=== PATIENT | female | born 1945 | race Caucasian/White ===

== ENCOUNTER 2018-10-24 10:02 | Inpatient (IN) | payer OTHER, MEDICAID ==
[~2018-10-24] VITALS: Ht 157.5 cm; Wt 94.8 kg
[~2018-10-24 10:02] MED LIST: AMBIEN5 MG PO; AMLODIPINE BESY10 M1 PO; APR25 PO; ASPIR-LOW81 M1 PO; CLOPIDOGREL75 M1 PO; COLACE100 MG PO; COR200 PO; CORE25 PO; DIPHENHYDRAMINE50 M2 PO; LIPI20 PO; LORAZEPAM0.5 MG PO; MIRUD PO; NEP PO; NEURONTIN100 MG PO; NIT0.4 SL; NOR10 PO; NOR5 PO; PRO40 PO; REN800 PO; REQUIP0.5 MG PO; TRAMADOL HCL50 MG PO; ZES20 PO; ZESTRIL40 MG PO
[2018-10-24 11:02] LABS: BASOPHIL % 0.2 % (0-2)
[2018-10-24 11:03] LABS: PLATELET COUNT 112 x10^3mcL (130-400); RED CELL DISTRIBUTION WIDTH 15.7 % (11.5-14.5)
[2018-10-24 11:19] LABS: ALBUMIN 3.4 g/dL (3.4-5.0); BILIRUBIN TOTAL 0.6 mg/dL (0.20-1.00); CALCIUM 8.6 mg/dL (8.5-10.1); CARBON DIOXIDE 27.4 mmol/L (21-32); POTASSIUM SERUM 4.4 mmol/L (3.5-5.1)
[2018-10-24 11:29] LABS: TOTAL PROTEIN, SERUM 8.4 g/dL (6.4-8.2)
[2018-10-24 11:30] LABS: CREATININE SERUM 8.9 mg/dL (0.6-1.0)
[2018-10-24 12:43] LABS: T3 TOTAL 0.6 ng/mL
[2018-10-24 12:46] LABS: CHOLESTEROL/HDL RATIO 3.8; MAGNESIUM 2.1 mg/dL (1.8-2.4); PHOSPHOROUS 1.9 mg/dL (2.5-4.9)
[2018-10-24 12:58] LABS: FREE T4 1.31 ng/dL (0.76-1.46); FREE THYROXINE INDEX 3.4 ug/dL (1.4-4.5); T4(THYROXINE) 9.8 ug/dL (4.7-13.3)
[2018-10-24] MEDS ORDERED: PLA75 (13:10)
[2018-10-24] MEDS ORDERED: AMLODIPINE-OLM1 EAC1 (13:10)
[2018-10-24] MEDS ORDERED: AMIODARONE HCL200 MG (13:10)
[2018-10-24] MEDS ORDERED: ZESTRIL5 MG (13:11)
[2018-10-24] MEDS ORDERED: CARVEDILOL3.125 M1 (13:11)
[2018-10-24] MEDS ORDERED: COLACE100 MG (13:11)
[2018-10-24] MEDS ORDERED: ELA25 (13:12)
[2018-10-24] MEDS ORDERED: ROPINIROLE2 M1 (13:12)
[2018-10-24] MEDS ORDERED: LORAZEPAM0.5 MG (13:12)
[2018-10-24] MEDS ORDERED: RENVELA800 M1 (13:13)
[2018-10-24 14:25] VITALS: BP 143/70
[2018-10-24 14:43] VITALS: BP 146/72
[2018-10-24 21:35] VITALS: BP 154/83
[2018-10-25] VITALS (7 sets, daily range): BP systolic 99–156; BP diastolic 23–76
[2018-10-25 06:51] LABS: BASOPHIL % 0.4 % (0-2)
[2018-10-25 06:52] LABS: PLATELET COUNT 85 x10^3mcL (130-400); RED CELL DISTRIBUTION WIDTH 15.9 % (11.5-14.5)
[2018-10-25 07:17] LABS: CALCIUM 8.1 mg/dL (8.5-10.1); CARBON DIOXIDE 26.7 mmol/L (21-32); MAGNESIUM 1.9 mg/dL (1.8-2.4); PHOSPHOROUS 3.3 mg/dL (2.5-4.9); POTASSIUM SERUM 4.3 mmol/L (3.5-5.1)
[2018-10-25 07:25] LABS: CREATININE SERUM 6.4 mg/dL (0.6-1.0)
[2018-10-26 05:21] VITALS: BP 132/54
[2018-10-26 07:14] LABS: CALCIUM 7.6 mg/dL (8.5-10.1); CARBON DIOXIDE 26.5 mmol/L (21-32); PHOSPHOROUS 4.4 mg/dL (2.5-4.9); POTASSIUM SERUM 4.5 mmol/L (3.5-5.1)
[2018-10-26 07:32] LABS: CREATININE SERUM 8.9 mg/dL (0.6-1.0)
[2018-10-26 07:38] LABS: BASOPHIL % 0.3 % (0-2)
[2018-10-26 07:40] LABS: PLATELET COUNT 92 x10^3mcL (130-400); RED CELL DISTRIBUTION WIDTH 15.4 % (11.5-14.5)
[2018-10-26 08:41] VITALS: BP 141/67
[2018-10-26 11:18] VITALS: BP 141/67
[2018-10-26] MEDS ORDERED: TAMIFLU6 MG/ML PO (14:07)
[2018-10-26 15:44] VITALS: BP 151/72
[2018-10-26 16:26] VITALS: BP 106/59
== END 2018-10-26 16:40 | disposition home or self-care (01) | DRG 682 ==
LOC: ED 10:02 → DU 11:45
PROVIDERS: Emergency Medicine; General Practice
DX: I12.0 Hypertensive chronic kidney disease with stage 5 chronic kidney disease or end stage renal disease (principal); J96.01 Acute respiratory failure with hypoxia; N18.6 End stage renal disease; N17.0 Acute kidney failure with tubular necrosis; J44.1 Chronic obstructive pulmonary disease with (acute) exacerbation; R65.10 Systemic inflammatory response syndrome (SIRS) of non-infectious origin without acute organ dysfunction; E66.2 Morbid (severe) obesity with alveolar hypoventilation; J09.X2 Influenza due to identified novel influenza A virus with other respiratory manifestations; E87.70 Fluid overload, unspecified; E11.22 Type 2 diabetes mellitus with diabetic chronic kidney disease; D69.6 Thrombocytopenia, unspecified; D53.9 Nutritional anemia, unspecified; G47.33 Obstructive sleep apnea (adult) (pediatric); M19.90 Unspecified osteoarthritis, unspecified site; F17.210 Nicotine dependence, cigarettes, uncomplicated; Z99.2 Dependence on renal dialysis
CPT/HCPCS: 36600; 82962; 83880; 84439; 87804; 94150; G0480; J0696; J0885-EC; J2543; J7030; J7050; J7620; Q0092